=== PATIENT | female | born 1980 | race Caucasian/White ===

== ENCOUNTER 2017-07-25 19:19 | Emergency (ER) | payer SELFPAY ==
[~2017-07-25] VITALS: Ht 162.6 cm; Wt 56.7 kg
[2017-07-25] MEDS ORDERED: KETOROLAC TROMETHAMINE 60 MG/2 ML VIAL IM ONE (20:00)
[2017-07-25] MEDS ORDERED: PROMETHAZINE HCL (IM) 25 MG/ML VIAL IM ONE (20:00)
[2017-07-25 21:33] VITALS: BP 90/62
== END 2017-07-25 21:37 | disposition home or self-care (01) ==
LOC: FSED 19:19
DX: G43.909 Migraine, unspecified, not intractable, without status migrainosus (principal); N30.90 Cystitis, unspecified without hematuria
CPT/HCPCS: 81003; 96372; 99283; J1885; J2550